=== PATIENT | female | born 2000 | race Caucasian/White ===

== ENCOUNTER 2018-11-26 08:00 | Outpatient (CLI) | payer OTHER ==
[2018-11-26 21:34] LABS: TRICHOMONAS VAGINALIS DNA NEGATIVE (NEGATIVE)
== END 2018-11-26 23:59 ==
LOC: LAB.R 08:00
PROVIDERS: ATTEND Nurse Practitioner Obstetrics & Gynecology
DX: Z36.85 Encounter for antenatal screening for Streptococcus B (principal); Z11.3 Encounter for screening for infections with a predominantly sexual mode of transmission
CPT/HCPCS: 87491; 87591; 87661; 87797

== ENCOUNTER 2018-12-06 12:07 | Observation (INO) | payer OTHER ==
[2018-12-06] MEDS ORDERED: ONDANSETRON 4 MG/2 ML VIAL IVP PRN (12:21)
[2018-12-06] MEDS ORDERED: SODIUM CHLORIDE FLUSH 0.9% 10 ML SYRINGE IVP PRN (12:21)
--- NOTE | 2018-12-06 13:40 | HISTORY & PHYSICAL EXAMINATION ---
Admit History - Visit Reason Visit Reason: Other - : 1 Parity: 0 Premature: 0 Ectopic: 0 : 0 Care: positive: [facility] Risk/History: positive: None Complications This : positive: None Smoking Status: Former smoker - Mother's Labs Mother's Blood Type: positive: O Mother's RH: positive: Positive GBS: positive: Group B Strep Positive Rubella Status: positive: Immune Meds/Allgy - Allergies Allergies/Adverse Reactions: Allergies Allergy/AdvReac Type Severity Reaction Status Date / Time No Known Drug Allergies Allergy Verified 12/06/18 13:15 Review of Systems - Constitutional Constitutional: denies: Fatigue, Fever, Chills - Eyes Eyes: denies: Blurred vision, Spots in vision, Dipolpia - Cardiovascular Cariovascular: denies: Irregular heart rate, Palpitations, Chest pain, Edema - Respiratory Respiratory: denies: SOB at rest - Gastrointestinal Gastrointestinal: denies: Constipation, Diarrhea, Nausea, Vomiting - Integumentary Integumentary: denies: Rash, Pruritis - Neurological Neurological: denies: Headache, Dizziness - Psychiatric Psychiatric: denies: Depression, Anxiety Physical - Abdominal Exam Vital Signs: Temp Pulse Resp BP Pulse Ox 36.6 C 86 16 139/80 H 99 12/06/18 12:39 12/06/18 12:39 12/06/18 12:39 12/06/18 12:39 12/06/18 12:39 Plan for Labor - Plan For Labor I expect patient to be DC'd or transferred within 96 hours.: Yes Plan for Labor: HPI: 18yo @ 39.3wks gestation by LMP c/w 11.3wk U/S presents to [facility] as directed from her routine office visit secondary to elevated blood pressure. She denies CASON, visual disturbances, RUQ or epigastric pain. She denies edema. SVE upon arriavl 3, posterior, vertex, membranes intact. She has been a patient of [facility] since 36wks gestation when she transferred her care from [facility]. Her has been healthy and uneventful with the exception of serum integrated which was positive for down syndrome. [place] and ultrasounds to follow were WNL. She also reports that she was being followed for concerns of growth and that her last growth ultrasound was WNL. Dating Criteria: LMP: 03/05/2019 Initial Ultrasound @ 11.3wks gestation - agrees Serial Exams - agree Medications: PNV; Tums, Zantac Allergies: Banana (itchy throat) Immunizations: Tdap 10/14/2018 PMHx:Generalized anxiety disorder; Obesity Surgical Hx: [place] teeth (2017) Social Hx: Former smoker, no ETOH or IVDA. 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 Family Hx: Asthma- Father; Bone cancer - grandfather; diabetes - father; HTN - father Ultrasounds: Initial ultrasound @ 11.3wks gestation is c/w LMP dating 07/22/2018 FAS WNL. Fundal placenta, no previa. 3VC. Size c/w dating labs: Blood type O positive, antibody neg PLT 345; Hgb 12.6; Hct 36.6 varicella immune rubella immune Hep B neg Hep C neg Hep A neg HIV non-reactive GC/CT neg RPR non-reactive Genetic testing: CF negative; Serum integrated screen POSITIVE; NIPT - neg, MFM consult and U/S WNL 1 hour GTT 117; Hgb 11.6 GBS POSITIVE Physical Exam: Normocephalic, atraumatic Heart RRR w/o M/G/R Lungs CTAB Abdomen gravid, soft, and nontender EFW 3400g SVE 04/26/-3, posterior, vertex, intact membranes Bilateral LE's no edema Mood is good Assessment: 18yo @ 39.3wks gestation by LMP c/w 11.3wk U/S Gestational hypertension GBS positive Plan: Pre-induction cervical ripening with misoprostol 50mcg BC q 4 hours Will initiate intrapartum antibiotic prophylaxis for GBS positive status with active labor or SROM/admission Patient will remain in observation until active labor, SROM, or epidural placement Encouraged ambulation and position changes. Encouraged ambien tonight to promote sleep unless in active labor Both patient and verbalized understanding and agree to above plan. They deny further questions or concerns at this time.
[2018-12-06] MEDS: miSOPROStoL 100 MCG TABLET BC SCH ×3 (13:49→22:05)
[2018-12-06 13:55] LABS: BASOPHILS % (AUTO) 0.2 %; EOSINOPHILS # (AUTO) 0.1 10^3/uL (0.0-0.7); EOSINOPHILS % (AUTO) 0.8 %; HGB - HEMOGLOBIN 12.8 g/dL (12.0-16.0); LYMPHOCYTES # (AUTO) 1.5 10^3/uL (1.5-3.5); MEAN CORPUSCULAR HEMOGLOBIN 29.4 pg (27.0-31.0); MEAN CORPUSCULAR HGB CONC 32.9 g/dL (32.0-36.0); MEAN CORPUSCULAR VOLUME 89.2 fL (81.0-99.0); MEAN PLATELET VOLUME 10.4 fL (7.9-10.8); MONOCYTES # (AUTO) 0.7 10^3/uL (0.0-1.0); MONOCYTES % (AUTO) 8.4 %; NEUTROPHILS % (AUTO) 71.9 %; PLT - PLATELET COUNT 267 10^3/uL (130-450); RED BLOOD COUNT 4.36 10^6/uL (4.20-5.40); RED CELL DISTRIBUTION WIDTH 14.3 % (12.0-15.0); WHITE BLOOD COUNT 8.3 x10^3/uL (4.8-10.8)
[2018-12-06 14:07] LABS: CREATININE 0.5 mg/dL (0.4-1.0); URIC ACID 4.9 mg/dL (2.6-7.2)
[2018-12-06 16:06] LABS: CREATININE,URINE 52.5 mg/dL; PROTEIN/CREATININE RATIO,URINE 0.2 (<=0.2)
[2018-12-06] MEDS ORDERED: SODIUM CHLORIDE FLUSH 0.9% 10 ML SYRINGE IVP SCH (17:00)
[2018-12-06] MEDS: ZOLPIDEM 5 MG TABLET PO PRN ×2 (22:04→23:54)
[2018-12-07] MEDS: miSOPROStoL 100 MCG TABLET BC SCH (02:04)
--- NOTE | 2018-12-07 09:33 | PROVIDER PROGRESS NOTE ---
Subjective - Subjective Subjective: S: Pt did not sleep well at all last night despite taking 10mg ambien. She states she slept for maybe 30 minutes total last night. She is feeling exhausted and irritable. She is hoping to go for a walk when her returns from letting out their dog. She denies CASON, visual disturbances, RUQ or epigastric pain. She reports her contractions increase in intensity when she is up moving around, but when she is sitting still they are more tolerable and crampy. She desires to discuss the option of going home and coming back in 2 days for further cervical ripening as her BPs have been stable throughout the night, pending normal repeat PIH labs. O: BPs consistently 130s/80s throughout the night. FHR baseline 130s, moderate variability, + accels, no decels Contractions irregular and inconsistent at this time with soft resting tone. A: 18yo @ 39.4wks gestation by LMP c/w 11.3wk U/S Gestational HTN GBS positive Pre-induction cervical ripening with misoprostol 50mcg BC q 4 hours s/p 4 total doses. Last dose administered at 0230. P: Continuous monitoring 4 hours after misoprostol administered. Allow patient to rest at this time. Repeat PIH labs at 1200. Counseled pt regarding normal BPs throughout the night and pending normal labs discussed option of going home to return in 48 hours for continued cervical ripening. Pt desires to discuss with her upon his return from checking on their pets and decide prior to next administration of misoprostol. Pt verbalized understanding and agrees to above plan. She denies further questions or concerns at this time. Objective - Vital Signs/Intake & Output Intake & Output: Intake & Output 12/04/18 12/05/18 12/06/18 12/07/18 23:59 23:59 23:59 23:59 Intake Total 250 250 Balance 250 250 - Lab Results Fish Bones: 12/06/18 13:43 12/06/18 13:43 Other Labs: Lab Results x24hrs 12/06/18 12/06/18 12/06/18 Range/Units 14:45 13:43 13:43 WBC (4.8-10.8) x10^3/uL RBC (4.20-5.40) 10^6/uL Hgb (12.0-16.0) g/dL Hct (37.0-47.0) % MCV (81.0-99.0) fL MCH (27.0-31.0) pg MCHC (32.0-36.0) g/dL RDW (12.0-15.0) % Plt Count (130-450) 10^3/uL MPV (7.9-10.8) fL Neut # (Auto) (1.5-6.6) 10^3/uL Lymph # (Auto) (1.5-3.5) 10^3/uL [place] # (Auto) (0.0-1.0) 10^3/uL Eos # (Auto) (0.0-0.7) 10^3/uL Baso # (Auto) (0.0-0.1) 10^3/uL Absolute Nucleated RBC x10^3/uL Nucleated RBC % /100WBC Creatinine 0.5 (0.4-1.0) mg/dL Estimated GFR (MDRD) 157 (>89) Uric Acid 4.9 (2.6-7.2) mg/dL AST 21 (10-42) IU/L Lactate Dehydrogenase 112 (91-225) IU/L Urine Creatinine 52.5 mg/dL Ur Total Protein Timed 9 mg/dL Protein/Creatinin Ratio 0.2 (<=0.2) 12/06/18 Range/Units 13:43 WBC 8.3 (4.8-10.8) x10^3/uL RBC 4.36 (4.20-5.40) 10^6/uL Hgb 12.8 (12.0-16.0) g/dL Hct 38.9 (37.0-47.0) % MCV 89.2 (81.0-99.0) fL MCH 29.4 (27.0-31.0) pg MCHC 32.9 (32.0-36.0) g/dL RDW 14.3 (12.0-15.0) % Plt Count 267 (130-450) 10^3/uL MPV 10.4 (7.9-10.8) fL Neut # (Auto) 6.0 (1.5-6.6) 10^3/uL Lymph # (Auto) 1.5 (1.5-3.5) 10^3/uL [place] # (Auto) 0.7 (0.0-1.0) 10^3/uL Eos # (Auto) 0.1 (0.0-0.7) 10^3/uL Baso # (Auto) 0.0 (0.0-0.1) 10^3/uL Absolute Nucleated RBC 0.00 x10^3/uL Nucleated RBC % 0.0 /100WBC Creatinine (0.4-1.0) mg/dL Estimated GFR (MDRD) (>89) Uric Acid (2.6-7.2) mg/dL AST (10-42) IU/L Lactate Dehydrogenase (91-225) IU/L Urine Creatinine mg/dL Ur Total Protein Timed mg/dL Protein/Creatinin Ratio (<=0.2)
--- NOTE | 2018-12-07 10:21 | PROVIDER PROGRESS NOTE ---
Subjective - Subjective Subjective: Patient has spoken with her and they both strongly desire to go home. BPs have remained stable at 130s/80s. PIH precautions extensively reviewed. Will repeat labs at 1100 and if WNL will release patient home to return 12/09/2018 for continued cervical ripening in anticipation for induction of labor secondary to gestational HTN. 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 Objective - Vital Signs/Intake & Output Intake & Output: Intake & Output 12/04/18 12/05/18 12/06/18 12/07/18 23:59 23:59 23:59 23:59 Intake Total 250 250 Balance 250 250 - Lab Results Fish Bones: 12/06/18 13:43 12/06/18 13:43 Other Labs: Lab Results x24hrs 12/06/18 12/06/18 12/06/18 Range/Units 14:45 13:43 13:43 WBC (4.8-10.8) x10^3/uL RBC (4.20-5.40) 10^6/uL Hgb (12.0-16.0) g/dL Hct (37.0-47.0) % MCV (81.0-99.0) fL MCH (27.0-31.0) pg MCHC (32.0-36.0) g/dL RDW (12.0-15.0) % Plt Count (130-450) 10^3/uL MPV (7.9-10.8) fL Neut # (Auto) (1.5-6.6) 10^3/uL Lymph # (Auto) (1.5-3.5) 10^3/uL [place] # (Auto) (0.0-1.0) 10^3/uL Eos # (Auto) (0.0-0.7) 10^3/uL Baso # (Auto) (0.0-0.1) 10^3/uL Absolute Nucleated RBC x10^3/uL Nucleated RBC % /100WBC Creatinine 0.5 (0.4-1.0) mg/dL Estimated GFR (MDRD) 157 (>89) Uric Acid 4.9 (2.6-7.2) mg/dL AST 21 (10-42) IU/L Lactate Dehydrogenase 112 (91-225) IU/L Urine Creatinine 52.5 mg/dL Ur Total Protein Timed 9 mg/dL Protein/Creatinin Ratio 0.2 (<=0.2) 12/06/18 Range/Units 13:43 WBC 8.3 (4.8-10.8) x10^3/uL RBC 4.36 (4.20-5.40) 10^6/uL Hgb 12.8 (12.0-16.0) g/dL Hct 38.9 (37.0-47.0) % MCV 89.2 (81.0-99.0) fL MCH 29.4 (27.0-31.0) pg MCHC 32.9 (32.0-36.0) g/dL RDW 14.3 (12.0-15.0) % Plt Count 267 (130-450) 10^3/uL MPV 10.4 (7.9-10.8) fL Neut # (Auto) 6.0 (1.5-6.6) 10^3/uL Lymph # (Auto) 1.5 (1.5-3.5) 10^3/uL [place] # (Auto) 0.7 (0.0-1.0) 10^3/uL Eos # (Auto) 0.1 (0.0-0.7) 10^3/uL Baso # (Auto) 0.0 (0.0-0.1) 10^3/uL Absolute Nucleated RBC 0.00 x10^3/uL Nucleated RBC % 0.0 /100WBC Creatinine (0.4-1.0) mg/dL Estimated GFR (MDRD) (>89) Uric Acid (2.6-7.2) mg/dL AST (10-42) IU/L Lactate Dehydrogenase (91-225) IU/L Urine Creatinine mg/dL Ur Total Protein Timed mg/dL Protein/Creatinin Ratio (<=0.2)
[2018-12-07 11:25] LABS: BASOPHILS % (AUTO) 0.2 %; EOSINOPHILS % (AUTO) 0.3 %; HGB - HEMOGLOBIN 13.3 g/dL (12.0-16.0); LYMPHOCYTES # (AUTO) 1.4 10^3/uL (1.5-3.5); MEAN CORPUSCULAR HEMOGLOBIN 29.6 pg (27.0-31.0); MEAN CORPUSCULAR HGB CONC 33.5 g/dL (32.0-36.0); MEAN CORPUSCULAR VOLUME 88.2 fL (81.0-99.0); MEAN PLATELET VOLUME 10.1 fL (7.9-10.8); MONOCYTES # (AUTO) 0.8 10^3/uL (0.0-1.0); MONOCYTES % (AUTO) 6.8 %; NEUTROPHILS # (AUTO) 9.2 10^3/uL (1.5-6.6); PLT - PLATELET COUNT 263 10^3/uL (130-450); RED CELL DISTRIBUTION WIDTH 14.3 % (12.0-15.0); WHITE BLOOD COUNT 11.4 x10^3/uL (4.8-10.8)
[2018-12-07 11:35] LABS: CREATININE,URINE 142.6 mg/dL; PROTEIN/CREATININE RATIO,URINE 0.2 (<=0.2)
[2018-12-07 11:39] LABS: URIC ACID 5.5 mg/dL (2.6-7.2)
--- NOTE | 2018-12-07 12:09 | PROVIDER PROGRESS NOTE ---
Subjective - Subjective Subjective: FINAL PROGRESS NOTE: [facility] labs WNL. BP 130/80. Pt denies CASON, visual disturbances RUQ or epigastric pain. Patient released home with precautions. Will return 12/09/2018 @ 0800. Patient verbalized understanding and agrees to above plan. She denies further questions or concerns at this time. Objective - Vital Signs/Intake & Output Intake & Output: Intake & Output 12/04/18 12/05/18 12/06/18 12/07/18 23:59 23:59 23:59 23:59 Intake Total 250 250 Balance 250 250 - Lab Results Fish Bones: 12/07/18 11:20 12/06/18 13:43 Other Labs: Lab Results x24hrs 12/07/18 12/07/18 12/07/18 Range/Units 11:20 11:20 11:20 WBC 11.4 H (4.8-10.8) x10^3/uL RBC 4.50 (4.20-5.40) 10^6/uL Hgb 13.3 (12.0-16.0) g/dL Hct 39.7 (37.0-47.0) % MCV 88.2 (81.0-99.0) fL MCH 29.6 (27.0-31.0) pg MCHC 33.5 (32.0-36.0) g/dL RDW 14.3 (12.0-15.0) % Plt Count 263 (130-450) 10^3/uL MPV 10.1 (7.9-10.8) fL Neut # (Auto) 9.2 H (1.5-6.6) 10^3/uL Lymph # (Auto) 1.4 L (1.5-3.5) 10^3/uL [place] # (Auto) 0.8 (0.0-1.0) 10^3/uL Eos # (Auto) 0.0 (0.0-0.7) 10^3/uL Baso # (Auto) 0.0 (0.0-0.1) 10^3/uL Absolute Nucleated RBC 0.00 x10^3/uL Nucleated RBC % 0.0 /100WBC Creatinine (0.4-1.0) mg/dL Estimated GFR (MDRD) (>89) Uric Acid 5.5 (2.6-7.2) mg/dL AST 24 (10-42) IU/L Lactate Dehydrogenase 122 (91-225) IU/L Urine Creatinine mg/dL Ur Total Protein Timed mg/dL Protein/Creatinin Ratio (<=0.2) 12/07/18 12/07/18 12/06/18 Range/Units 11:00 11:00 14:45 WBC (4.8-10.8) x10^3/uL RBC (4.20-5.40) 10^6/uL Hgb (12.0-16.0) g/dL Hct (37.0-47.0) % MCV (81.0-99.0) fL MCH (27.0-31.0) pg MCHC (32.0-36.0) g/dL RDW (12.0-15.0) % Plt Count (130-450) 10^3/uL MPV (7.9-10.8) fL Neut # (Auto) (1.5-6.6) 10^3/uL Lymph # (Auto) (1.5-3.5) 10^3/uL [place] # (Auto) (0.0-1.0) 10^3/uL Eos # (Auto) (0.0-0.7) 10^3/uL Baso # (Auto) (0.0-0.1) 10^3/uL Absolute Nucleated RBC x10^3/uL Nucleated RBC % /100WBC Creatinine (0.4-1.0) mg/dL Estimated GFR (MDRD) (>89) Uric Acid (2.6-7.2) mg/dL AST (10-42) IU/L Lactate Dehydrogenase (91-225) IU/L Urine Creatinine 142.6 142.3 52.5 mg/dL Ur Total Protein Timed 26 9 mg/dL Protein/Creatinin Ratio 0.2 0.2 (<=0.2) 12/06/18 12/06/18 12/06/18 Range/Units 13:43 13:43 13:43 WBC 8.3 (4.8-10.8) x10^3/uL RBC 4.36 (4.20-5.40) 10^6/uL Hgb 12.8 (12.0-16.0) g/dL Hct 38.9 (37.0-47.0) % MCV 89.2 (81.0-99.0) fL MCH 29.4 (27.0-31.0) pg MCHC 32.9 (32.0-36.0) g/dL RDW 14.3 (12.0-15.0) % Plt Count 267 (130-450) 10^3/uL MPV 10.4 (7.9-10.8) fL Neut # (Auto) 6.0 (1.5-6.6) 10^3/uL Lymph # (Auto) 1.5 (1.5-3.5) 10^3/uL [place] # (Auto) 0.7 (0.0-1.0) 10^3/uL Eos # (Auto) 0.1 (0.0-0.7) 10^3/uL Baso # (Auto) 0.0 (0.0-0.1) 10^3/uL Absolute Nucleated RBC 0.00 x10^3/uL Nucleated RBC % 0.0 /100WBC Creatinine 0.5 (0.4-1.0) mg/dL Estimated GFR (MDRD) 157 (>89) Uric Acid 4.9 (2.6-7.2) mg/dL AST 21 (10-42) IU/L Lactate Dehydrogenase 112 (91-225) IU/L Urine Creatinine mg/dL Ur Total Protein Timed mg/dL Protein/Creatinin Ratio (<=0.2)
[2018-12-07 12:34] VITALS: BP 130/79
== END 2018-12-07 12:15 | disposition home or self-care (01) ==
LOC: WFO 12:07 → FBP 12:21
PROVIDERS: ADMIT Nurse Practitioner Obstetrics & Gynecology; ATTEND Nurse Practitioner Obstetrics & Gynecology
DX: O61.0 Failed medical induction of labor (principal); O13.3 Gestational [pregnancy-induced] hypertension without significant proteinuria, third trimester; O99.820 Streptococcus B carrier state complicating pregnancy; Z3A.39 39 weeks gestation of pregnancy; Z87.891 Personal history of nicotine dependence
CPT/HCPCS: 36415; 82565; 82570; 83615; 84156; 84450; 84550; 85025; 96374; A9270; G0378; G0379

== ENCOUNTER 2018-12-09 07:41 | Inpatient (IN) | payer OTHER ==
[2018-12-09] MEDS ORDERED: SODIUM CHLORIDE FLUSH 0.9% 10 ML SYRINGE IVP PRN (08:10)
[2018-12-09 08:47] LABS: BASOPHILS % (AUTO) 0.4 %; EOSINOPHILS # (AUTO) 0.1 10^3/uL (0.0-0.7); EOSINOPHILS % (AUTO) 1.1 %; HGB - HEMOGLOBIN 12.6 g/dL (12.0-16.0); LYMPHOCYTES # (AUTO) 1.4 10^3/uL (1.5-3.5); MEAN CORPUSCULAR HEMOGLOBIN 29.7 pg (27.0-31.0); MEAN CORPUSCULAR VOLUME 90.1 fL (81.0-99.0); MEAN PLATELET VOLUME 10.4 fL (7.9-10.8); MONOCYTES # (AUTO) 0.8 10^3/uL (0.0-1.0); MONOCYTES % (AUTO) 9.4 %; NEUTROPHILS # (AUTO) 5.7 10^3/uL (1.5-6.6); NEUTROPHILS % (AUTO) 71.6 %; PLT - PLATELET COUNT 219 10^3/uL (130-450); RED BLOOD COUNT 4.24 10^6/uL (4.20-5.40); RED CELL DISTRIBUTION WIDTH 14.1 % (12.0-15.0)
[2018-12-09] MEDS: SODIUM CHLORIDE FLUSH 0.9% 10 ML SYRINGE IVP SCH (08:49)
[2018-12-09 08:53] LABS: URIC ACID 5.8 mg/dL (2.6-7.2)
[2018-12-09 09:51] LABS: CREATININE,URINE 114.9 mg/dL; PROTEIN/CREATININE RATIO,URINE 0.1 (<=0.2)
[2018-12-09] MEDS: miSOPROStol 100 MCG TABLET BC SCH ×2 (10:22→14:33)
[2018-12-09] MEDS: fentaNYL 100 MCG/2 ML VIAL IVP PRN (18:52)
[2018-12-09] MEDS ORDERED: AMPICILLIN 2 GM in SODIUM CHLORIDE 0.9% MINIBAG 100 ML IV ONE (19:10)
[2018-12-09] MEDS: LACTATED RINGERS 1,000 ML IV SCH (19:35)
--- NOTE | 2018-12-09 19:36 | HISTORY & PHYSICAL EXAMINATION ---
Admit History - Visit Reason Visit Reason: Other (Induction of labor for gestational hypertension) - Smoking Status: Never smoker - Other Maternal History Other Maternal History: HPI: 18yo @ 39.6wks gestation by LMP c/w 11.3wk U/S with BRITTANY 12/10/18 presents to [facility] for induction of labor for gestational hypertension. On 12/06/18, Olga was directed from her routine office visit to Labor and Delivery secondary to elevated blood pressures. She underwent cervical ripening with miso x6 with nminimal change in [place] score from initial exam of 04/26/-3, posterior, vertex, membranes intact. Her blood pressures were in normal range, she was withiout symptoms, and PIH labs were normal. She was discharged to home for IOL on 12/09/18. She presents today for IOL. No change in health hx since time of prior exam. Denies CASON/vision change/RUQ pain. Endorses movement. Denies loss of fluid/vaginal bleeding/contractions. She has been a patient of [facility] since 36wks gestation when she transferred her care from [facility]. Her has been healthy and uneventful with the exception of serum integrated which was positive for down syndrome. [place] and ultrasounds to follow were WNL. She also reports that she was being followed for concerns of growth and that her last growth ultrasound was WNL. Dating Criteria: LMP: 03/05/2019 Initial Ultrasound @ 11.3wks gestation - agrees Serial Exams - agree Medications: PNV; Tums, Zantac Allergies: Banana (itchy throat) Immunizations: Tdap 10/14/2018 PMHx:Generalized anxiety disorder; Obesity Surgical Hx: [place] teeth (2017) Social Hx: Former smoker, no ETOH or IVDA. 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 She currently works at [employer] [place] Family Hx: Asthma- Father; Bone cancer - grandfather; diabetes - father; HTN - father Ultrasounds: Initial ultrasound @ 11.3wks gestation is c/w LMP dating 07/22/2018 FAS WNL. Fundal placenta, no previa. 3VC. Size c/w dating labs: Blood type O positive, antibody neg PLT 345; Hgb 12.6; Hct 36.6 varicella immune rubella immune Hep B neg Hep C neg Hep A neg HIV non-reactive GC/CT neg RPR non-reactive Genetic testing: CF negative; Serum integrated screen POSITIVE; NIPT - neg, MFM consult and U/S WNL 1 hour GTT 117; Hgb 11.6 GBS POSITIVE Physical Exam: Normocephalic, atraumatic Heart RRR w/o M/G/R Lungs CTAB Abdomen gravid, soft, and nontender EFW 3400g SVE 1/50/-3, posterior, vertex, intact membranes Bilateral LE's no edema Mood is good Meds/Allgy - Allergies Allergies/Adverse Reactions: Allergies Allergy/AdvReac Type Severity Reaction Status Date / Time No Known Drug Allergies Allergy Verified 12/06/18 13:15 Review of Systems - Other Findings Other Findings: As per HPI, otherwise remaining systems are negative. Physical - Abdominal Exam Contraction Intensity: positive: Irritability, Other - Monitoring Strip Review: positive: Category I - Presentation Presentation: positive: Vertex - Vaginal Exam Membranes: positive: Membranes intact Dilation (in cm): 1 Effacement (%): 50 Station: positive: -3 Cervical Position: positive: Posterior Plan for Labor - Plan For Labor Plan for Labor: 18-year-old G1, P0 at 39 weeks 6 days estimated gestational age here for induction of labor for gestational hypertension Induction of labor:Unfavorable Siu score. -Will start cervical ripening with misoprostol 50 mcg p.o. every 4 hours to a maximum of 6 doses. -Discussed Noriega balloon. Highly recommend given poor response to misoprostil in prior admission. Will administer 1-2 doses of misoprostol and Then Place, Noriega program. Will start ampicillin for GBS prophylaxis when Noriega balloon is placed -Pitocin once favorable -AROM when appropriate Gestational hypertension: -Mild range pressures at current -PIH labs within normal limits -No symptoms at current -We will treat severe range blood pressures (SBP greater than 160, DBP greater than 110) with IV labetalol/hydralazine as per ACOG guidelines. -We will start magnesium for severe range pressures/symptoms/PIH lab abnormaliti es -Continue to monitor well-being: -Vertex confirmed by bedside ultrasound -Category 1 tracing -GBS positive Will start ampicillin per GBS prophylaxis protocol with placement of Noriega bulb/rupture of membranes/active labor -Denies history of HSV -Continuous external monitoring Pain management: -Desires but is not 100% committed to unmedicated delivery. -Discussed options for management. These include: Fentanyl 50 mcg IV every 2 hours in early labor. Max dose 200 mcg and not to be given after 7 cm dilation Nitrous oxide at any point in the labor process Epidural as desired Rh+ /Rubella immune Anticipate
--- NOTE | 2018-12-09 19:49 | PROVIDER PROGRESS NOTE ---
Subjective - Prog Note Date Prog Note Date: 12/09/18 Prog Note Time: 19:00 - Subjective Subjective: Patient has had 2 doses of misoprostol. She is [place] every 3 to 5 minutes. They are mild to moderate. Endorses movement. No loss of fluid or vaginal bleeding. Blood pressures have been in mild high normal range. No headache/vision changes/right upper quadrant pain. Objective - Objective General Appearance: positive: No acute distress Neck: positive: Nml inspection Respiratory: positive: No respiratory distress Rectal: positive: Non-tender Extremities: positive: Non-tender, No pedal edema Neurologic/Psychiatric: positive: Oriented x3 - Lab Results Fish Bones: 12/09/18 08:29 Other Labs: Lab Results x24hrs 12/09/18 12/09/18 12/09/18 Range/Units 08:29 08:29 08:29 WBC 8.0 (4.8-10.8) x10^3/uL RBC 4.24 (4.20-5.40) 10^6/uL Hgb 12.6 (12.0-16.0) g/dL Hct 38.2 (37.0-47.0) % MCV 90.1 (81.0-99.0) fL MCH 29.7 (27.0-31.0) pg MCHC 33.0 (32.0-36.0) g/dL RDW 14.1 (12.0-15.0) % Plt Count 219 (130-450) 10^3/uL MPV 10.4 (7.9-10.8) fL Neut # (Auto) 5.7 (1.5-6.6) 10^3/uL Lymph # (Auto) 1.4 L (1.5-3.5) 10^3/uL [place] # (Auto) 0.8 (0.0-1.0) 10^3/uL Eos # (Auto) 0.1 (0.0-0.7) 10^3/uL Baso # (Auto) 0.0 (0.0-0.1) 10^3/uL Absolute Nucleated RBC 0.00 x10^3/uL Nucleated RBC % 0.0 /100WBC Uric Acid 5.8 (2.6-7.2) mg/dL AST 17 (10-42) IU/L Lactate Dehydrogenase 97 (91-225) IU/L Urine Creatinine mg/dL Ur Total Protein Timed mg/dL Protein/Creatinin Ratio (<=0.2) 12/09/18 Range/Units 08:00 WBC (4.8-10.8) x10^3/uL RBC (4.20-5.40) 10^6/uL Hgb (12.0-16.0) g/dL Hct (37.0-47.0) % MCV (81.0-99.0) fL MCH (27.0-31.0) pg MCHC (32.0-36.0) g/dL RDW (12.0-15.0) % Plt Count (130-450) 10^3/uL MPV (7.9-10.8) fL Neut # (Auto) (1.5-6.6) 10^3/uL Lymph # (Auto) (1.5-3.5) 10^3/uL [place] # (Auto) (0.0-1.0) 10^3/uL Eos # (Auto) (0.0-0.7) 10^3/uL Baso # (Auto) (0.0-0.1) 10^3/uL Absolute Nucleated RBC x10^3/uL Nucleated RBC % /100WBC Uric Acid (2.6-7.2) mg/dL AST (10-42) IU/L Lactate Dehydrogenase (91-225) IU/L Urine Creatinine 114.9 mg/dL Ur Total Protein Timed 17 mg/dL Protein/Creatinin Ratio 0.1 (<=0.2) - Other Results/Comments Other Results/Comments: SVE: 1/50/-3/posterior/soft medium Membranes intact Category 1 tracing [place]: Every 3 to 5 minutes, mild Patient received 50 mcg of fentanyl IV. Noriega balloon was placed. Uterine balloon was infiltrated with 60 cc of sterile normal saline. Vaginal balloon was infiltrated with 40 cc of sterile normal saline. Assessment/Plan - Problem List (1) Encounter for induction of labor Impression: Induction of labor: -Has received 2 doses of misoprostol 50 mcg p.o. with minimal change in Siu score -[place] Noriega balloon placed with 60/40 cc NS infiltrated -GBS positive; starting ampicillin for GBS prophylaxis given placement of Noriega balloon. -We will monitor for 1 to 2 hours. Consider starting Pitocin at low dose after 1 to 2 hours depending on level of patient discomfort/uterine activity FWB: -Category 1 tracing -Starting GBS prophylaxis G HTN: -Blood pressure is within mild range or high normal range -No symptoms -PIH labs within normal limits -Continue to monitor
[2018-12-09] MEDS: OXYTOCIN/DEXTROSE 5 % 30 UNIT/500 ML BAG IV SCH (22:18)
[2018-12-09] MEDS: AMPICILLIN 1 GM in SODIUM CHLORIDE 0.9% MINIBAG 100 ML IV SCH (23:31)
[2018-12-10] MEDS: fentaNYL 100 MCG/2 ML VIAL IVP PRN ×2 (00:14→02:12)
[2018-12-10] MEDS: AMPICILLIN 1 GM in SODIUM CHLORIDE 0.9% MINIBAG 100 ML IV SCH ×4 (03:36→15:33)
[2018-12-10] MEDS ORDERED: ONDANSETRON 4 MG/2 ML VIAL IVP PRN ×2 (05:05→10:04)
[2018-12-10] MEDS: miSOPROStol 100 MCG TABLET BC SCH ×6 (05:18→18:21)
[2018-12-10] MEDS: SODIUM CHLORIDE FLUSH 0.9% 10 ML SYRINGE IVP SCH ×4 (05:18→18:20)
[2018-12-10] MEDS: LACTATED RINGERS 1,000 ML IV SCH ×4 (05:33→18:30)
[2018-12-10] MEDS ORDERED: METOCLOPRAMIDE 10 MG/2 ML VIAL IVP PRN (08:18)
[2018-12-10] MEDS ORDERED: METOCLOPRAMIDE 10 MG TABLET PO PRN (08:19)
--- NOTE | 2018-12-10 10:02 | ANESTHESIA ---
Pre-Anesthesia VS, & Labs - Diagnosis Active Labor - Procedure Vaginal Delivery Height 5 ft 4 in Weight (kg) 94.347 kg - NPO Other (Clear liquids) - Is Patient ?: Yes - Lab Results Current Lab Results: Laboratory Tests 12/09/18 08:29: Uric Acid 5.8, AST 17 12/09/18 08:29: Lactate Dehydrogenase 97 12/09/18 08:29: WBC 8.0, RBC 4.24, Hgb 12.6, Hct 38.2, MCV 90.1, MCH 29.7, MCHC 33.0, RDW 14.1, Plt Count 219, MPV 10.4, Neut # (Auto) 5.7, Lymph # (Auto) 1.4 L , [place] # (Auto) 0.8, Eos # (Auto) 0.1, Baso # (Auto) 0.0, Absolute Nucleated RBC 0.00, Nucleated RBC % 0.0 Fish Bones: 12/09/18 08:29 Home Medications and Allergies Active Medications Fentanyl (Fentanyl) 50 mcg IVP Q2HR PRN PRN Reason: PAIN Last Admin: 12/10/18 02:12 Dose: 50 mcg Lactated Ringer's (Lr) 1,000 mls @ 150 mls/hr IV .[id number] [facility] Last Admin: 12/10/18 08:35 Dose: Not Given Ampicillin Sodium 1 gm/ Sodium (Chloride) 100 mls @ 200 mls/hr IV Q4H [facility] Last Infusion: 12/10/18 08:34 Dose: Infused OXYTOCIN/DEXTROSE 5 % (Pitocin/Dextrose 5%) 30 unit in 500 mls @ 1 mls/hr IV TITR [facility]; Protocol Last Admin: 12/09/18 22:18 Dose: 1 milliunit/min, 1 mls/hr Metoclopramide HCl (Reglan Inj) 5 - 10 mg IVP Q6HR PRN PRN Reason: Nausea / Vomiting Metoclopramide HCl (Reglan) 10 mg PO ACHS PRN PRN Reason: Nausea / Vomiting Misoprostol (Cytotec) 50 mcg BC Q4H [facility] Last Admin: 12/10/18 08:34 Dose: Not Given Ondansetron HCl (Zofran Inj) 4 - 8 mg IVP Q8HR PRN PRN Reason: Nausea / Vomiting Sodium Chloride (Normal Saline Flush 0.9%) 10 ml IVP PRN PRN PRN Reason: NEEDED PER PROVIDER ORDERS Last Admin: 12/09/18 20:54 Dose: 10 ml Sodium Chloride (Normal Saline Flush 0.9%) 10 ml IVP 0100,0900,1700 CINDI Last Admin: 12/10/18 05:19 Dose: Not Given PNV Allergies/Adverse Reactions: Allergies Allergy/AdvReac Type Severity Reaction Status Date / Time No Known Drug Allergies Allergy Verified 12/06/18 13:15 Anes History & Medical History - Anesthetic History Family history of Anesthesia Complications: Denies Family history of Malignant Hyperthermia: Denies - Medical History Cardiovascular: reports: None Pulmonary: reports: None Gastrointestinal: reports: GERD (during ) Urinary: reports: None Neuro: reports: None Musculoskeletal: reports: None Endocrine/Autoimmune: reports: None Blood Disorders: reports: None Smoking Status: Never smoker Psychosocial: reports: No issues indicated - Obstetrical History : 1 Parity: 0 Events: positive: Other (Gestational hypertension) Exam General: Alert, Oriented x3, Cooperative, No acute distress Dental: WNL Mouth Openin Fingerbreadth Neck Mobility: Normal Mallampati classification: III Thyromental Distance: greater than 6 cm Plan Anesthesia Type: Epidural (DPE) Consent for Procedure(s) Verified and Reviewed: Yes Code Status: Attempt Resuscitation ASA classification: 2-Mild systemic disease Is this case an emergency?: No
[2018-12-10] MEDS ORDERED: ePHEDrine 50 MG/ML VIAL IVP PRN (10:04)
[2018-12-10] MEDS ORDERED: fent/BUPIV 2 MCG/0.125% 250 ML EP PRN (10:04)
[2018-12-10] MEDS ORDERED: NALOXONE 0.4 MG/ML VIAL IVP PRN (10:04)
[2018-12-10] MEDS ORDERED: NALBUPHINE 10 MG/ML AMP IVP PRN (10:04)
[2018-12-10] MEDS: ONDANSETRON 4 MG/2 ML VIAL IVP PRN ×2 (10:05→17:23)
[2018-12-10] MEDS ORDERED: fent/BUPIV 2 MCG/0.125% 250 ML EP ONE (10:08)
--- NOTE | 2018-12-10 12:01 | PROVIDER PROGRESS NOTE ---
Labor Progress Note - Uterine Monitoring Uterine Monitoring Mode: positive: External toco Contraction Frequency (min/apart): 3 Contraction Intensity: positive: Mild to moderate Uterine Resting Tone: positive: Soft - Monitoring Monitor Mode: positive: External ultrasound Heart Rate Baseline: 130 Heart Rate Variability: positive: Moderate (6-25 bmp) Accelerations: positive: Present, 15x15 Decelerations: positive: None Strip Review: positive: Category I - Vaginal Exam Dilation (in cm): 4 Effacement (%): 60 Station: -1 Cervical Position: Posterior - Labor Progress Note Labor Progress Note/Additional Text: AROM clear fluid.
--- NOTE | 2018-12-10 17:19 | PROVIDER PROGRESS NOTE ---
Labor Progress Note - Uterine Monitoring Uterine Monitoring Mode: positive: IUPC
--- NOTE | 2018-12-10 17:23 | PROVIDER PROGRESS NOTE ---
Labor Progress Note - Uterine Monitoring Uterine Monitoring Mode: positive: IUPC (strong) Contraction Intensity: positive: Strong Uterine Resting Tone: positive: Soft - Monitoring Monitor Mode: positive: External ultrasound Heart Rate Baseline: 130's Heart Rate Variability: positive: Minimal (0-5 bpm) Accelerations: positive: Present, 15x15 Decelerations: positive: None Strip Review: positive: Category I - Vaginal Exam Dilation (in cm): 7-8 Effacement (%): 80% Station: 2 Cervical Position: Anterior - Labor Progress Note Labor Progress Note/Additional Text: Progressing well. pain control problems. anaesthesia here to epidural management
[2018-12-10] MEDS ORDERED: fentaNYL 100 MCG/2 ML VIAL ONE (17:30)
[2018-12-10] MEDS ORDERED: SODIUM CHLORIDE 0.9% 10 ML ONE (17:31)
[2018-12-10] MEDS ORDERED: LIDOCAINE-MPF 1% 30 ML VIAL ONE (19:00)
[2018-12-10] MEDS ORDERED: miSOPROStol 200 MCG TABLET ONE (19:00)
[2018-12-10] MEDS ORDERED: LIDOCAINE 1% 50 ML MDV TD ONE (19:10)
[2018-12-10] MEDS ORDERED: OXYTOCIN/DEXTROSE 5 % 30 UNIT/500 ML BAG IV PRN (19:10)
[2018-12-10] MEDS ORDERED: WITCH HAZEL/GLYCERIN 1 PAD TOP PRN (19:31)
[2018-12-10] MEDS ORDERED: diphenhydrAMINE 25 MG CAPSULE PO PRN (19:31)
[2018-12-10] MEDS ORDERED: oxyCODONE 5 MG TABLET PO PRN (19:31)
[2018-12-10] MEDS ORDERED: HYDROCORTISONE 1% CREAM 28 GM TUBE PR PRN (19:31)
[2018-12-10] MEDS: OXYTOCIN/DEXTROSE 5 % 30 UNIT/500 ML BAG IV SCH ×2 (19:39→19:41)
--- NOTE | 2018-12-10 19:40 | DELIVERY NOTE ---
Delivery Note - Labor Labor: positive: Induced by oxytocin - Infant Delivery Method Delivery Method: positive: Spontaneous vaginal delivery - Cervical Ripening Method Cervical Ripening Method: positive: Balloon device, Misoprostil (times 6) - Presentation Presentation: positive: Vertex, IVETTE - left occiput anterior - Nuchal Cord Nuchal Cord: positive: Present (times one) - Anesthetic Anesthetic Type: Anesthetic: positive: Lidocaine - 1% plain Volume: positive: Other (20) - Episiotomy Type Episiotomy Type: positive: Midline (second degree with out extension) - Suture Suture Type: positive: Vicryl Suture Size: positive: 3-0 - Delivery Outcome Delivery Outcome: positive: Livebirth (femail Apgars 9/9) - : positive: Placed in direct skin contact with mother, Bulb syringe, Stimulated, Warmed [place] sex: positive: Female - Cord Cord: positive: 3 vessels - Placenta Placenta: positive: Intact, Spontaneous - Estimated Blood Loss Estimated Blood Loss (in cc): 300 - Post Delivery Events Post Delivery Events: positive: No post delivery events - Delivery Comments (Free Text/Narrative) Delivery Comments (Free Text/Narrative): because of gestational HTN pt presented for cervical ripening and induction of labor. cervix was not responsive and had multiple doses of cytotec. She was sent home and represented. Cytotec used and a [employer] catheter placed. Catheter fell out at 3 cm. pitocin started and then a epidural placed. she was AROM at 1154. She rested as pitocin was increased. she reached complete at 1837 and following a 27 min second stage she delivered at 1904 a live female. because of bradycardia in the 60's a MLE was cut which expedited Delivery. Baby was placed on mothers abdomen and stimulated. Apgars of 9/9. Placenta followed complete at 1910. Repaired with 3-0 vicril. Total EBL 300 ml
--- NOTE | 2018-12-10 19:53 | ANESTHESIA PROCEDURE NOTE ---
Anesthesia Epidural Template - Other Comments Other Comments: Called for inadequate control of labor pain. Epidural was bolused with 10ml PF NS with 100 mcg fentanyl. Epidural settings were changed to 12ml every 45mins PIEB. Full evaluation pending.
[2018-12-10] MEDS ORDERED: LACTATED RINGERS 1,000 ML IV SCH (20:00)
[2018-12-10] MEDS: DOCUSATE SODIUM 100 MG CAPSULE PO SCH (21:05)
[2018-12-10] MEDS: IBUPROFEN 800 MG TABLET PO SCH (21:05)
[2018-12-10] MEDS: ACETAMINOPHEN 500 MG TABLET PO SCH (21:05)
[2018-12-10] MEDS ORDERED: SIMETHICONE CHEW 80 MG TABLET PO SCH (22:00)
[2018-12-11] MEDS: IBUPROFEN 800 MG TABLET PO SCH ×4 (03:39→23:08)
[2018-12-11] MEDS: ACETAMINOPHEN 500 MG TABLET PO SCH ×3 (05:02→20:59)
[2018-12-11 05:45] LABS: BASOPHILS % (AUTO) 0.3 %; EOSINOPHILS # (AUTO) 0.1 10^3/uL (0.0-0.7); EOSINOPHILS % (AUTO) 0.8 %; HGB - HEMOGLOBIN 10.4 g/dL (12.0-16.0); LYMPHOCYTES # (AUTO) 1.5 10^3/uL (1.5-3.5); LYMPHOCYTES % (AUTO) 13.5 %; MEAN CORPUSCULAR HEMOGLOBIN 30.2 pg (27.0-31.0); MEAN CORPUSCULAR HGB CONC 33.7 g/dL (32.0-36.0); MEAN CORPUSCULAR VOLUME 89.8 fL (81.0-99.0); MEAN PLATELET VOLUME 10.4 fL (7.9-10.8); MONOCYTES # (AUTO) 1.1 10^3/uL (0.0-1.0); MONOCYTES % (AUTO) 10.1 %; NEUTROPHILS # (AUTO) 8.3 10^3/uL (1.5-6.6); NEUTROPHILS % (AUTO) 74.8 %; PLT - PLATELET COUNT 194 10^3/uL (130-450); RED BLOOD COUNT 3.44 10^6/uL (4.20-5.40); WHITE BLOOD COUNT 11.1 x10^3/uL (4.8-10.8)
--- NOTE | 2018-12-11 08:23 | PROVIDER PROGRESS NOTE ---
Subjective - Prog Note Date Prog Note Date: 12/11/18 Prog Note Time: 08:21 - Subjective Pt reports feeling: Improved (Pain 06/09. taking motrin. breast feeding) Objective - Vital Signs/Intake & Output Reviewed Vital Signs: Yes Vital Signs: Vital Signs x48h Temp Pulse Resp BP Pulse Ox 12/11/18 03:30 36.9 C 82 17 114/60 99 Intake & Output: Intake & Output 12/08/18 12/09/18 12/10/18 12/11/18 23:59 23:59 23:59 23:59 Intake Total 100 5087.500 Output Total 1000 300 Balance 100 4087.500 -300 - Objective General Appearance: positive: No acute distress, Alert (sleepy) Respiratory: positive: Chest non-tender, No respiratory distress, Breath sounds nml Cardiovascular: positive: Regular rate & rhythm, No murmur, No gallop Abdomen: positive: Non-tender, No organomegaly, Nml bowel sounds, Mass Back: negative: CVA tenderness (R), CVA tenderness (L) Extremities: negative: Calf tenderness, Ajit's sign/cords - Lab Results Fish Bones: 12/11/18 05:32 Other Labs: Lab Results x24hrs 12/11/18 Range/Units 05:32 WBC 11.1 H (4.8-10.8) x10^3/uL RBC 3.44 L (4.20-5.40) 10^6/uL Hgb 10.4 L (12.0-16.0) g/dL Hct 30.9 L (37.0-47.0) % MCV 89.8 (81.0-99.0) fL MCH 30.2 (27.0-31.0) pg MCHC 33.7 (32.0-36.0) g/dL RDW 14.0 (12.0-15.0) % Plt Count 194 (130-450) 10^3/uL MPV 10.4 (7.9-10.8) fL Neut # (Auto) 8.3 H (1.5-6.6) 10^3/uL Lymph # (Auto) 1.5 (1.5-3.5) 10^3/uL Wilkes # (Auto) 1.1 H (0.0-1.0) 10^3/uL Eos # (Auto) 0.1 (0.0-0.7) 10^3/uL Baso # (Auto) 0.0 (0.0-0.1) 10^3/uL Absolute Nucleated RBC 0.00 x10^3/uL Nucleated RBC % 0.0 /100WBC Assessment/Plan - Problem List (1) Gestational [-induced] hypertension without significant proteinuria, complicating childbirth Impression: blood pressure resolving (2) (spontaneous vaginal delivery) Impression: PPD#1 progressing.
[2018-12-11] MEDS: DOCUSATE SODIUM 100 MG CAPSULE PO SCH ×2 (10:02→21:00)
[2018-12-12] MEDS ORDERED: LACTATED RINGERS 0 ML IV ONE (02:07)
[2018-12-12] MEDS ORDERED: OXYTOCIN IV ONE (02:07)
[2018-12-12] MEDS ORDERED: DEXTROSE IV ONE (02:07)
[2018-12-12] MEDS: ACETAMINOPHEN 500 MG TABLET PO SCH (05:05)
--- NOTE | 2018-12-12 06:22 | PROVIDER PROGRESS NOTE ---
Subjective - Prog Note Date Prog Note Date: 12/12/18 Prog Note Time: 06:19 - Subjective Pt reports feeling: Improved Subjective: Olga is up and ambulating, tolerating p.o., voiding, and pain is well managed with oral pain medications. Breast-feeding is going well. She notes her anxiety levels are markedly reduced. Blood pressures have been within normal range for 24 hours. She has no headaches, vision change, right upper quadrant pain. She feels ready for discharge. Objective - Vital Signs/Intake & Output Vital Signs: Vital Signs x48h Temp Pulse Resp BP Pulse Ox 12/12/18 02:00 98.0 F 75 16 133/75 H 99 Intake & Output: Intake & Output 12/09/18 12/10/18 12/11/18 12/12/18 23:59 23:59 23:59 23:59 Intake Total 100 5087.500 750 Output Total 1000 300 Balance 100 4087.500 450 - Objective General Appearance: positive: No acute distress Neck: positive: Nml inspection Respiratory: positive: No respiratory distress, Breath sounds nml Cardiovascular: positive: Regular rate & rhythm Abdomen: positive: Non-tender, Other (Fundus firm below the umbilicus) Extremities: positive: Non-tender, Other (Mild bilateral lower extremity edema. No tenderness) Neurologic/Psychiatric: positive: Oriented x3 - Lab Results Fish Bones: 12/11/18 05:32 Assessment/Plan - Problem List (2) (spontaneous vaginal delivery) Impression: day 2 status post induction of labor for gestational hypertension with . Patient meeting goals for discharge. -Up and ambulating -Tolerating p.o. -Voiding without difficulty -Pain managed with oral medications. Blood pressures have normalized. No PIH symptoms. Warning signs reviewed. Routine discharge instructions given. Discharge to home. If baby is not released, okay to discharge to [facility]. Follow-up within 1 week for blood pressure check. Patient instructed to conduct blood pressure checks at home.
[2018-12-12 09:19] VITALS: BP 149/100
[2018-12-12] MEDS: IBUPROFEN 800 MG TABLET PO SCH (09:57)
--- NOTE | 2018-12-12 12:04 | Labor Flowsheet ---
Labor Flowsheet Datetime Report Generated by CPN: 12/12/2018 12:03 Datetime: 12/12/2018 09:32 VITAL SIGNS NBP Sys/Carolyn/Mean (mmHg): 151 : 91 : 105 Pulse: 82 LaborFlag: Labor Datetime: 12/10/2018 19:45 SpO2 (%): 98 Datetime: 12/10/2018 19:00 UTERINE ACTIVITY Monitor Mode: Internal Frequency (min): 2-3 Duration (sec): 60-80 Pattern: Normal: <= 5 Contractions in 10 Minutes Resting Tone IUP (mmHg): 30 Intensity IUP (mmHg): 100 ASSESSMENT A Monitor Mode: External US FHR Baseline Rate : indeterminate - FHTs from 70s-170s Category: Category II Datetime: 12/10/2018 18:55 FHR Baseline Changes: No Baseline Change Variability: Moderate 6-25 bpm Accelerations: None Decelerations: Variable Datetime: 12/10/2018 18:48 COMMUNICATION Communication: Provider at Bedside Provider Notified (Name): Giem Communication Comments: Set up for delivery Datetime: 12/10/2018 18:37 VAGINAL EXAM Dilatation (cm): 10.0 Station: 2 Exam by: EM Datetime: 12/10/2018 18:36 Respirations: 20 Temperature (C): 37.0 Datetime: 12/10/2018 18:34 Anesthesia Level Check: T11 Datetime: 12/10/2018 17:25 Antiemetics/Antacids: Zofran (mg) @ 4 Datetime: 12/10/2018 17:18 Anesthesia Comments: Gamaliel @BS Datetime: 12/10/2018 17:15 Resting Tone (Palpate): Relaxed Datetime: 12/10/2018 17:09 Effacement (%): 80 Datetime: 12/10/2018 17:00 Contraction Comments: Unable to palpate ctx Datetime: 12/10/2018 16:47 Patient Position/Activity: Right Lateral Datetime: 12/10/2018 16:45 Monitor Interventions for UA: [place] Adjusted Datetime: 12/10/2018 16:30 Monitor Interventions for FHR: Ultrasound Adjusted Datetime: 12/10/2018 16:00 Stage of : Labor Datetime: 12/10/2018 15:30 Quality: Moderate Datetime: 12/10/2018 15:26 Epidural Procedure Other: Redose Datetime: 12/10/2018 14:44 MEDICATIONS Pitocin (milliunits): Increased to @ 10 Datetime: 12/10/2018 14:15 Patient Care Comments: pt sleeping Datetime: 12/10/2018 12:00 I/O Interventions: Noriega Cath Inserted Datetime: 12/10/2018 11:54 Membrane Status: Ruptured Membranes Rupture Method: Artificial Amniotic Fluid Color: Clear Amniotic Fluid Amount: Small Vaginal Exam Comments: no change Datetime: 12/10/2018 10:16 Epidural Procedure: Test Dose Datetime: 12/10/2018 10:06 PROCEDURE TIME OUT Procedure Verify: Correct Patient Identity; Correct Side and Site are Marked; Accurate Procedure Co nsent Form; Agreement on Procedure to be Done; Correct Patient Position; Relevant Images and Results are Properly Labeled and Displayed; Addressed Need to Administer Antibiotics or Fluids for Irrigation ; Safety Precautions Based on Patient History or Medication Use ANESTHESIA Epidural Positioning: Sitting Datetime: 12/10/2018 07:55 Temperature Route: Oral Datetime: 12/10/2018 06:24 TEACHING Instructional Method: Verbal Plan of Care: Plan of Care Discussed Unit Routine: Unit Personnel Datetime: 12/10/2018 06:18 PAIN Pain Scale: 5 Pain Presence: Intermittent Pain Type: Contraction Pain Location: Abdomen; Back Pain Relief Measures: Comfort Measures Pain Coping: Talking Through Contractions; Breathing Through Contractions; Declines Medication or E pidural Datetime: 12/10/2018 06:14 Pitocin Checklist: At Least 1 Acceleration of 15 bpm x 15 Seconds in 30 Minutes or Adequate Variabi lity; No More than 1 Late Deceleration Occurred in Past 30 Minutes; No More than 2 Variable Decelerat ions > 60 Seconds in Duration and decreasing >60 bpm in 30 minutes; No More than 5 Uterine Contractio ns in 10 Minutes for any 20 Minute Interval Datetime: 12/10/2018 05:24 Cervix, Consistency: Moderate Cervix, Position: Posterior Datetime: 12/10/2018 04:18 Pain Assessment Comments: pt sleeping Datetime: 12/10/2018 02:33 Pain Management: IV Narcotics; PRN Medications; Pain Scale/Goals; Comfort Measures Datetime: 12/10/2018 02:12 Analgesics/Sedatives: Fentanyl (mcg) @ 50 Datetime: 12/10/2018 02:00 MATERNAL ASSESSMENT Level of Consciousness: Fully Conscious Breath Sounds, Left: Clear and Equal Breath Sounds, Right: Clear and Equal Nausea/Vomiting: Present Datetime: 12/09/2018 23:31 Antibiotics: Ampicillin IV 1 Gm Datetime: 12/09/2018 20:40 Medication Comments: NITROUS STOPPED Datetime: 12/09/2018 20:00 DTR's/Clonus: DTRs 1+ Headache: Denies RUQ Epigastric Pain: Denies Datetime: 12/09/2018 19:34 PATIENT CARE IV/Blood Work: IV Infusing per Order Datetime: 12/09/2018 19:30 Labor/Induction: Cervical Ripening Medications: Antibiotics Datetime: 12/09/2018 19:00 Oxygen Method: Room Air Datetime: 12/09/2018 18:55 Cervical Ripening Agents: Noriega Balloon Datetime: 12/09/2018 17:59 Comfort Measures: Breathing/Relaxation; Family Support Datetime: 12/09/2018 16:00 Comments: Cyclic changes from mod to min robbie Datetime: 12/09/2018 15:01 Related: Nutrition; Hydration; Activity and Rest
--- NOTE | 2018-12-22 13:22 | DISCHARGE SUMMARY ---
Discharge Summary Admit Date: 12/09/18 Discharge Date: 12/12/18 Discharging Provider: Sarah Garrison MD Condition at Discharge: Good Discharge Disposition: 01 Home, Self Care - DIAGNOSES Admission Diagnoses: IUP at 39w6d Gestational hypertension Discharge Diagnoses with Status of Each Condition: Same and delivery of term gestation. - HPI History of Present Illness: 18yo @ 39.6wks gestation by LMP c/w 11.3wk U/S with BRITTANY 12/10/18 presented to [facility] for induction of labor for gestational hypertension. On 12/06/18, Olga was directed from her routine office visit to Labor and Delivery secondary to elevated blood pressures. She underwent cervical ripening with miso x6 with minimal change in Bishops score from initial exam of 1/25/-3, posterior, vertex, membranes intact. Her blood pressures were in normal range, she was withiout symptoms, and PIH labs were normal. She was discharged to home for IOL on 12/09/18. She had been a patient of [facility] since 36wks gestation when she transferred her care from [facility]. Her has been healthy and uneventful with the exception of serum integrated which was positive for down syndrome. Wilber and ultrasounds to follow were WNL. She also reports that she was being followed for concerns of growth and that her last growth ultrasound was WNL - HOSPITAL COURSE Hospital Course: 18 yo at 39w6d EGA admitted for induction of labor for gestational hypertension. Initial SVE was 1/50/-3, posterior, vertex, intact membranes. She received misoprostol x2 doses. Noriega balloon was placed and fell out at 3 cm. Ampicillin given for GBS prophylaxis. Epidural for pain management. Induction continued with pitocin administration. She underwent artificial rupture of membranes at 1154 on 12/10/18. She rested as pitocin was increased. She reached complete at 1837. She pushed well for 27 min second stage, delivering a vigrous female infant at 19:04. bradycardia to the 60s noted at time of delivery and a midline episiotomy was performed to expedite delivery. Baby was placed on mothers abdomen and stimulated. Apgars of 9/9. Weight 3180 g. Placenta followed delivered at 1910. It was inspected and found to be intact. Second degree laceration repaired with 3-0 Vicryl. Total EBL 300 ml. course was uncomplicated. Blood pressures remained within normal range during period. Discharged to home on PPD#2. - ALLERGIES Allergies/Adverse Reactions: Allergies Allergy/AdvReac Type Severity Reaction Status Date / Time No Known Drug Allergies Allergy Verified 12/06/18 13:15 - LABS Result Diagrams: 12/11/18 05:32 - FOLLOW UP Follow Up: 1 week for BP check - TIME SPENT Time Spent in Discharge (Minutes): 30
== END 2018-12-12 11:50 | disposition home or self-care (01) | DRG 807 ==
LOC: WFO 07:41 → FBP 08:03 → WFO 08:12 → FBP 08:13 → OBSVTOIN 12-10 08:10
PROVIDERS: ADMIT Obstetrics & Gynecology; ATTEND Obstetrics & Gynecology
PROC: 0U7C7ZZ Dilation of Cervix, Via Natural or Artificial Opening (ICD-10-PCS; 2018-12-09)
PROC: 10E0XZZ Delivery of Products of Conception, External Approach (ICD-10-PCS; principal; 2018-12-10)
PROC: 0W8NXZZ Division of Female Perineum, External Approach (ICD-10-PCS; 2018-12-10)
PROC: 10907ZC Drainage of Amniotic Fluid, Therapeutic from Products of Conception, Via Natural or Artificial Opening (ICD-10-PCS; 2018-12-10)
PROC: 10H07YZ Insertion of Other Device into Products of Conception, Via Natural or Artificial Opening (ICD-10-PCS; 2018-12-10)
DX: O13.4 Gestational [pregnancy-induced] hypertension without significant proteinuria, complicating childbirth (principal); Z37.0 Single live birth; Z3A.39 39 weeks gestation of pregnancy; O76 Abnormality in fetal heart rate and rhythm complicating labor and delivery; Z87.891 Personal history of nicotine dependence; O99.824 Streptococcus B carrier state complicating childbirth; O69.81X0 Labor and delivery complicated by cord around neck, without compression, not applicable or unspecified; O99.344 Other mental disorders complicating childbirth; F41.1 Generalized anxiety disorder
CPT/HCPCS: 36415; 82570; 83615; 84156; 84450; 84550; 85025; A9270; G0378; G0379; J7120; 59200

== ENCOUNTER 2019-04-24 15:47 | Emergency (ER) | payer OTHER ==
[2019-04-24 16:08] VITALS: BP 134/77
--- NOTE | 2019-04-24 16:08 | ED Physician Documentation ---
PD HPI UPPER EXT INJURY - Stated complaint Stated Complaint: RT ELBOW INJURY/FALL - History obtained from History obtained from: Patient - History of Present Illness Location: Right, Elbow, Other (right foot) Type of injury: Fall (she tripped and fell, catching herself with right outstretched hand. FOot twisted as well. No pain at wrist but hurts in elbow at posterior area. Pain with extension of elbow and with supination/pronation.) Where injury occurred: Home Timing - onset: Today Timing - details: Abrupt onset Improved by: Rest Worsened by: Moving, Palpating Associated symptoms: Swelling (around the elbow). No: Weakness, Numbness Similar symptoms before: Has not had sx before Recently seen: Not recently seen Review of Systems Skin: denies: Abrasion (s), Laceration (s) Musculoskeletal: denies: Neck pain, Back pain Neurologic: denies: Focal weakness, Numbness, Headache, Head injury PD PAST MEDICAL HISTORY - Past Medical History Cardiovascular: None Respiratory: None Neuro: None Endocrine/Autoimmune: None GI: GERD (during ) : None Musculoskeletal: None - Allergies Allergies/Adverse Reactions: Allergies Allergy/AdvReac Type Severity Reaction Status Date / Time No Known Drug Allergies Allergy Verified 04/24/19 16:04 - Social History Smoking Status: Never smoker PD ED PE NORMAL - Vitals Vital signs reviewed: Yes - General General: Alert and oriented X 3, No acute distress, Well developed/nourished - Derm Derm: Normal color, Warm and dry - Extremities Extremities: Other (right foot with some tenderness dorsolaterally. Not tender at ankle. Right elbow with tenderness at antecubital area and also at posterior elbow. Not tender at epicondyles. No noted effusion. Full extension but hurts. ) - Neuro Neuro: No motor deficit, No sensory deficit Results - Vitals Vitals: Vital Signs - 24 hr 04/24/19 16:04 Temperature 36.6 C Heart Rate 80 Respiratory 15 Rate Blood Pressure 134/77 H O2 Saturation 99 Oxygen O2 Source Room air - Rads (name of study) right foot Radiology: Prelim report reviewed (no fractures), See rad report right elbow Radiology: Prelim report reviewed, EMP read contemporaneously (fracture of radial neck without angulation nor displacement. ), See rad report PD MEDICAL DECISION MAKING - ED course Complexity details: considered differential, d/w patient Departure - Departure Disposition: Home, Self Care Clinical Impression: Foot sprain Qualifiers: Encounter type: initial encounter Laterality: right Qualified Code(s): S93.601A - Unspecified sprain of right foot, initial encounter Accidental fall Qualifiers: Encounter type: initial encounter Qualified Code(s): W19.XXXA - Unspecified fall, initial encounter Radial neck fracture Qualifiers: Encounter type: initial encounter Fracture type: closed Fracture alignment: nondisplaced Laterality: right Qualified Code(s): S52.134A - Nondisplaced fracture of neck of right radius, initial encounter for closed fracture Elbow sprain Qualifiers: Encounter type: initial encounter Laterality: right Qualified Code(s): S53.401A - Unspecified sprain of right elbow, initial encounter Condition: Stable Record reviewed to determine appropriate education?: Yes Instructions: ED Fx Radial Head Follow-Up: Charity Braun ARNP [Primary Care Provider] - Comments: Use the sling for the arm to protect motion at the elbow. Slight motion is okay. No heavy lifting push pull or use of the elbow so that the fractured part does not displace. Follow-up with orthopedics through your primary care in about a week, call for an appointment. It does look like a fracture of the head of the radius. You will need to have limited use of the arm and it in a sling for about 4 weeks. Follow-up however with orthopedics in about a week to recheck it. Tylenol or ibuprofen as needed for pains. Discharge Date/Time: 04/24/19 17:50
[2019-04-24] MEDS ORDERED: ACETAMINOPHEN 325 MG TABLET PO STA (17:13)
--- NOTE | 2019-04-24 17:13 | XRAY Report ---
Reason: fall Procedure Date: 04/24/2019 Accession Number: [id number] / [id number] Procedure: XR - Foot 3 View RT CPT Code: Final Report FULL RESULT: EXAM: RIGHT FOOT RADIOGRAPHY EXAM DATE: 04/24/2019 05:04 PM. CLINICAL HISTORY: Tripped on stairs. Fall. Pain. COMPARISON: None. TECHNIQUE: 3 views. FINDINGS: Bones: Normal. No fractures or bone lesions. Joints: Normal. No subluxations. Soft Tissues: Unremarkable. IMPRESSION: Normal foot radiography. [facility]
--- NOTE | 2019-04-24 17:16 | XRAY Report ---
Reason: fall Procedure Date: 04/24/2019 Accession Number: [id number] / [id number] Procedure: XR - Elbow 3 View RT CPT Code: Final Report FULL RESULT: EXAM: RIGHT ELBOW RADIOGRAPHY EXAM DATE: 04/24/2019 05:01 PM. CLINICAL HISTORY: Fall. COMPARISON: None. TECHNIQUE: 3 views. FINDINGS: Bones: Subtle cortical irregularity of the radial neck is seen which could reflect a subtle nondisplaced fracture. No other fracture lines. Joints: Small elbow joint effusion noted. No subluxation. Soft Tissues: Mild anterior soft tissue swelling at the elbow. IMPRESSION: 1. Probable nondisplaced radial neck fracture with surrounding soft tissue swelling. 2. Small elbow joint effusion. No subluxations. RADIA
== END 2019-04-24 17:50 | disposition home or self-care (01) ==
LOC: ED 15:47
DX: S52.134A Nondisplaced fracture of neck of right radius, initial encounter for closed fracture (principal); S53.401A Unspecified sprain of right elbow, initial encounter; S93.601A Unspecified sprain of right foot, initial encounter; W01.0XXA Fall on same level from slipping, tripping and stumbling without subsequent striking against object, initial encounter; Y92.009 Unspecified place in unspecified non-institutional (private) residence as the place of occurrence of the external cause
CPT/HCPCS: 73080; 73630; 99283; A9270

== ENCOUNTER 2020-11-10 15:40 | Emergency (ER) | payer OTHER ==
[2020-11-10 16:06] LABS: BASOPHILS % (AUTO) 0.5 %; EOSINOPHILS # (AUTO) 0.5 10^3/uL (0.0-0.7); HCT - HEMATOCRIT 34.6 % (37.0-47.0); HGB - HEMOGLOBIN 11.9 g/dL (12.0-16.0); LYMPHOCYTES # (AUTO) 2.2 10^3/uL (1.5-3.5); LYMPHOCYTES % (AUTO) 28.5 %; MEAN CORPUSCULAR HEMOGLOBIN 29.4 pg (27.0-31.0); MEAN CORPUSCULAR HGB CONC 34.4 g/dL (32.0-36.0); MEAN CORPUSCULAR VOLUME 85.4 fL (81.0-99.0); MEAN PLATELET VOLUME 9.3 fL (7.9-10.8); MONOCYTES # (AUTO) 0.9 10^3/uL (0.0-1.0); MONOCYTES % (AUTO) 11.1 %; NEUTROPHILS # (AUTO) 4.1 10^3/uL (1.5-6.6); NEUTROPHILS % (AUTO) 53.6 %; PLT - PLATELET COUNT 278 10^3/uL (130-450); RED BLOOD COUNT 4.05 10^6/uL (4.20-5.40); RED CELL DISTRIBUTION WIDTH 12.8 % (12.0-15.0); WHITE BLOOD COUNT 7.7 x10^3/uL (4.8-10.8)
[2020-11-10 16:26] LABS: ALBUMIN 4.1 g/dL (3.2-5.5); ALBUMIN/GLOBULIN RATIO 1.1 (1.0-2.2); BILIRUBIN,TOTAL 0.6 mg/dL (0.2-1.0); CALCIUM 9.1 mg/dL (8.5-10.3); CREATININE 0.5 mg/dL (0.4-1.0); POTASSIUM 3.4 mmol/L (3.5-5.0); TOTAL PROTEIN 7.8 g/dL (6.7-8.2)
--- NOTE | 2020-11-10 16:51 | ED Physician Documentation ---
PD HPI FEMALE - Stated complaint Stated Complaint: SPOTTING - Chief complaint Chief Complaint: Abd Pain - History obtained from History obtained from: Patient - History of Present Illness Timing - onset: Today Timing - duration: Days (1) Timing - details: Abrupt onset Pain level max: 1 Pain level max: 1 Associated symptoms: Pelvic pain. No: Fever, Abdominal pain, Vaginal pain, Vaginal discharge, Dysuria, Urinary frequency Contributing factors: Recently seen: Not recently seen - Additional information Additional information: Patient is a 20-year-old female, 2 para 1 who believes she is about 9 to 10 weeks . She states that that today she started having spotting. Has not had any care yet. Is on vitamins. Rates her pelvic cramping as 1 out of 10. Nothing makes it better or worse. No urinary symptoms. No vaginal discharge Review of Systems Constitutional: denies: Fever, Chills Respiratory: denies: Cough GI: denies: Vomiting, Diarrhea Skin: denies: Rash Musculoskeletal: denies: Neck pain, Back pain Neurologic: denies: Headache PD PAST MEDICAL HISTORY - Past Medical History Cardiovascular: None Respiratory: None Neuro: None Endocrine/Autoimmune: None GI: GERD (during ) : None Musculoskeletal: None - Allergies Allergies/Adverse Reactions: Allergies Allergy/AdvReac Type Severity Reaction Status Date / Time No Known Drug Allergies Allergy Verified 11/10/20 15:49 - Social History Does the pt smoke?: No Smoking Status: Never smoker PD ED PE NORMAL - Vitals Vital signs reviewed: Yes - General General: Alert and oriented X 3, No acute distress - HEENT HEENT: Moist mucous membranes - Neck Neck: Supple, no meningeal sign - Cardiac Cardiac: RRR - Respiratory Respiratory: No respiratory distress, Clear bilaterally - Abdomen Abdomen: Soft, Non tender, Non distended - Back Back: No CVA TTP, No spinal TTP - Derm Derm: Warm and dry - Extremities Extremities: No edema - Neuro Neuro: Alert and oriented X 3 Results - Vitals Vitals: Vital Signs - 24 hr 11/10/20 11/10/20 15:44 16:58 Temperature 36.9 C Heart Rate 105 H 89 Respiratory 14 21 Rate Blood Pressure 138/80 H 134/82 H O2 Saturation 99 99 Oxygen O2 Source Room air - Labs Labs: Laboratory Tests 11/10/20 11/10/20 11/10/20 16:03 16:03 16:03 WBC 7.7 RBC 4.05 L Hgb 11.9 L Hct 34.6 L MCV 85.4 MCH 29.4 MCHC 34.4 RDW 12.8 Plt Count 278 MPV 9.3 Neut # (Auto) 4.1 Lymph # (Auto) 2.2 [place] # (Auto) 0.9 Eos # (Auto) 0.5 Baso # (Auto) 0.0 Absolute Nucleated RBC 0.00 Nucleated RBC % 0.0 Sodium 134 L Potassium 3.4 L Chloride 101 Carbon Dioxide 24 Anion Gap 9.0 BUN 11 Creatinine 0.5 Estimated GFR (MDRD) 154 Glucose 99 Calcium 9.1 Total Bilirubin 0.6 AST 31 ALT 30 Alkaline Phosphatase 73 Total Protein 7.8 Albumin 4.1 Globulin 3.7 Albumin/Globulin Ratio 1.1 Lipase 48 HCG, Quant 00667.00 Urine Color Urine Clarity Urine pH Ur Specific [place] Urine Protein Urine Glucose (UA) Urine Ketones Urine Occult Blood Urine Nitrite Urine Bilirubin Urine Urobilinogen Ur Leukocyte Esterase Urine RBC Urine WBC Ur Squamous Epith Cells Urine Bacteria Urine Mucus Ur Microscopic Review Urine Culture Comments 11/10/20 17:05 WBC RBC Hgb Hct MCV MCH MCHC RDW Plt Count MPV Neut # (Auto) Lymph # (Auto) [place] # (Auto) Eos # (Auto) Baso # (Auto) Absolute Nucleated RBC Nucleated RBC % Sodium Potassium Chloride Carbon Dioxide Anion Gap BUN Creatinine Estimated GFR (MDRD) Glucose Calcium Total Bilirubin AST ALT Alkaline Phosphatase Total Protein Albumin Globulin Albumin/Globulin Ratio Lipase HCG, Quant Urine Color YELLOW Urine Clarity CLEAR Urine pH 6.5 Ur Specific [place] 1.010 Urine Protein NEGATIVE Urine Glucose (UA) NEGATIVE Urine Ketones NEGATIVE Urine Occult Blood SMALL H Urine Nitrite NEGATIVE Urine Bilirubin NEGATIVE Urine Urobilinogen 0.2 (NORMAL) Ur Leukocyte Esterase NEGATIVE Urine RBC 0-5 Urine WBC 0-3 Ur Squamous Epith Cells RARE Squamous Urine Bacteria None Seen Urine Mucus Few Strands Ur Microscopic Review INDICATED Urine Culture Comments NOT INDICATED - Rads (name of study) OB ultrasound Radiology: Final report received, EMP read contemporaneously, See rad report (Single living intrauterine gestation with average ultrasound age of 8 weeks 1 day. ) PD MEDICAL DECISION MAKING - ED course Complexity details: reviewed results, re-evaluated patient, considered differential, d/w patient ED course: 20-year-old female with vaginal bleeding affecting early . No evidence of ectopic. Single living IUP, EGA of 8 weeks 1 day. Small subchorionic hemorrhage. We will have her follow-up with OB for further care. Patient counseled regarding signs and symptoms for which I believe and urgent re- evaluation would be necessary. Patient with good understanding of and agreement to plan and is comfortable going home at this time This document was made in part using voice recognition software. While efforts are made to proofread this document, sound alike and grammatical errors may occur. Departure - Departure Disposition: 01 Home, Self Care Clinical Impression: Vaginal bleeding affecting early Condition: Good Instructions: ED Miscarriage Poss Follow-Up: [facility] [Provider Group] - Within 1 week Comments: Your ultrasound appears to show an intrauterine , estimated gestational age of 8 weeks and 1 day. Your estimated delivery date is 06-21-2021. You do have a small subchorionic hemorrhage, this is common early in . This should resolve on its own. Please follow-up with your doctor for further care. Return if you worsen Discharge Date/Time: 11/10/20 18:00
[2020-11-10 16:58] VITALS: BP 134/82
[2020-11-10 17:08] LABS: BILIRUBIN,URINE NEGATIVE (NEGATIVE); CLARITY,URINE CLEAR (CLEAR); GLUCOSE, URINE (UA) NEGATIVE (NEGATIVE); KETONES,URINE (UA) NEGATIVE (NEGATIVE); LEUKOCYTE ESTERASE, URINE NEGATIVE (NEGATIVE); NITRITE,URINE NEGATIVE (NEGATIVE); OCCULT BLOOD,URINE SMALL (NEGATIVE); PH,URINE 6.5 PH (5.0-7.5); PROTEIN,URINE NEGATIVE (NEGATIVE); UROBILINOGEN,URINE 0.2 (NORMAL) E.U./dL (NORMAL)
[2020-11-10 17:12] LABS: BACTERIA,URINE None Seen /HPF (None Seen); MUCUS,URINE Few Strands; RBC,URINE 0-5 /HPF (0-5); SQUAMOUS EPITHELIAL CELL,UR RARE Squamous (<= Few); WBC,URINE 0-3 /HPF (0-5)
--- NOTE | 2020-11-10 18:20 | Ultrasound Report ---
PROCEDURE: OB First Trimester w/TV INDICATIONS: 10 weeks preg, vag bleed OUTSIDE/PRIOR DATING DATA: Last menstrual period (LMP): 09/03/2020. LMP-based estimated date of delivery (BRITTANY): 06/10/2021. First dating scan (date and location): 11/10/2020. Estimated date of delivery (BRITTANY) from first dating scan: 06/21/2021. The below data below was generated using the ultrasound generated BRITTANY of 06/21/2021 TECHNIQUE: Real-time scanning was performed of the fetus and maternal pelvic organs, with image documentation. Endovaginal scanning was also performed to better visualize the fetus and maternal ovaries. COMPARISON: None. FINDINGS: Embryo: Mean gestational sac diameter is 2.8 cm. The embryo within the gestational sac has a crown-r ump length of 1.7 cm. Average ultrasound age is 8 weeks 1 day. Heart rate: 164 Measurement variability in dating: +/- 4 weeks by LMP, +/- 7 days by mean sac diameter (use before 6 weeks gestation if crown-rump length not able to be measured), +/- 5 days by crown-rump length (6-12 weeks gestation). Maternal organs: Ovaries unremarkable other than a left ovarian corpus luteum cyst. IMPRESSION: Single living intrauterine gestation with average ultrasound age of 8 weeks 1 day. Reviewed by: Jak Barbosa MD on 11/10/2020 6:19 PM PDT Approved by: Jka Barbosa MD on 11/10/2020 6:19 PM PDT Station ID: [id number]
== END 2020-11-10 18:00 | disposition home or self-care (01) ==
LOC: ED 15:40
DX: O20.9 Hemorrhage in early pregnancy, unspecified (principal); Z3A.08 8 weeks gestation of pregnancy
CPT/HCPCS: 36415; 80053; 81001; 81003; 83690; 84702; 85025; 87086; 99282; 99284

== ENCOUNTER 2020-11-30 15:36 | Outpatient (CLI) | payer OTHER ==
[2020-11-30 20:53] LABS: BASOPHILS % (AUTO) 0.3 %; EOSINOPHILS # (AUTO) 0.3 10^3/uL (0.0-0.7); EOSINOPHILS % (AUTO) 3.9 %; HCT - HEMATOCRIT 35.3 % (37.0-47.0); LYMPHOCYTES # (AUTO) 1.8 10^3/uL (1.5-3.5); MEAN CORPUSCULAR HEMOGLOBIN 29.3 pg (27.0-31.0); MEAN CORPUSCULAR VOLUME 86.1 fL (81.0-99.0); MEAN PLATELET VOLUME 10.1 fL (7.9-10.8); MONOCYTES # (AUTO) 0.7 10^3/uL (0.0-1.0); MONOCYTES % (AUTO) 8.9 %; NEUTROPHILS # (AUTO) 4.5 10^3/uL (1.5-6.6); NEUTROPHILS % (AUTO) 61.6 %; PLT - PLATELET COUNT 297 10^3/uL (130-450); RED CELL DISTRIBUTION WIDTH 13.2 % (12.0-15.0); WHITE BLOOD COUNT 7.3 x10^3/uL (4.8-10.8)
[2020-12-02 08:57] LABS: HEPATITIS B SURFACE ANTIGEN NON-REACTIVE (NON-REACTIVE); HEPATITIS C ANTIBODY NON-REACTIVE (NON-REACTIVE)
[2020-12-02 13:46] LABS: HIV AG/AB 4TH GEN NON-REACTIVE (NON-REACTIVE)
== END 2020-11-30 15:37 | disposition home or self-care (01) ==
LOC: LAB.N 15:36
PROVIDERS: ATTEND Advanced Practice Midwife
DX: Z36.9 Encounter for antenatal screening, unspecified (principal)
CPT/HCPCS: 36415; 85025; 86592; 86762; 86787; 86803; 86850; 86900; 86901; 87340; 87389

== ENCOUNTER 2021-01-14 08:00 | Outpatient (CLI) | payer OTHER | END 2021-01-14 16:13 | disposition home or self-care (01) | LOC: LAB.N 08:00 | PROVIDERS: ATTEND Nurse Practitioner Obstetrics & Gynecology | DX: Z36.9 Encounter for antenatal screening, unspecified (principal) | CPT/HCPCS: 81511; 81599 ==

== ENCOUNTER 2021-01-17 09:43 | Emergency (ER) | payer OTHER ==
[2021-01-17 10:44] LABS: BILIRUBIN,URINE NEGATIVE (NEGATIVE); GLUCOSE, URINE (UA) NEGATIVE (NEGATIVE); KETONES,URINE (UA) NEGATIVE (NEGATIVE); LEUKOCYTE ESTERASE, URINE NEGATIVE (NEGATIVE); NITRITE,URINE NEGATIVE (NEGATIVE); OCCULT BLOOD,URINE NEGATIVE (NEGATIVE); PH,URINE 7.5 PH (5.0-7.5); PROTEIN,URINE NEGATIVE (NEGATIVE); UROBILINOGEN,URINE 2 E.U./dL (NORMAL)
[2021-01-17 10:46] LABS: CLARITY,URINE CLEAR (CLEAR)
[2021-01-17 11:17] VITALS: BP 136/74
--- NOTE | 2021-01-17 11:34 | ED Physician Documentation ---
PD HPI ABD PAIN - Stated complaint Stated Complaint: 17WKS/CONTRACTIONS - Chief complaint Chief Complaint: Abd Pain - History obtained from History obtained from: Patient - Additional information Additional information: at 17 weeks gestation had severe contractions today, lasting 30 to 60 seconds every 5 minutes. It was painful enough that she had to leave work. She denies bleeding or fluid loss. Review of Systems Ten Systems: 10 systems reviewed and negative Constitutional: reports: Reviewed and negative Eyes: reports: Reviewed and negative Ears: reports: Reviewed and negative Nose: reports: Reviewed and negative Throat: reports: Reviewed and negative PD PAST MEDICAL HISTORY - Past Medical History Cardiovascular: None Respiratory: None Neuro: None Endocrine/Autoimmune: None GI: GERD : None Musculoskeletal: None - Past Surgical History Past Surgical History: No - Allergies Allergies/Adverse Reactions: Allergies Allergy/AdvReac Type Severity Reaction Status Date / Time No Known Drug Allergies Allergy Verified 11/10/20 15:49 - Social History Does the pt smoke?: No Smoking Status: Never smoker Does the pt drink ETOH?: No Does the pt have substance abuse?: No - Immunizations Immunizations are current?: Yes PD ED PE NORMAL - Vitals Vital signs reviewed: Yes - General General: Alert and oriented X 3, No acute distress - Abdomen Abdomen: Normal bowel sounds, Soft, Non tender, Other (Bedside sono shows live IUP) - Back Back: No CVA TTP, No spinal TTP - Derm Derm: Normal color, Warm and dry - Neuro Neuro: Alert and oriented X 3, Normal speech Results - Vitals Vitals: Vital Signs - 24 hr 01/17/21 01/17/21 10:09 11:16 Temperature 36.7 C Heart Rate 83 85 Respiratory 16 Rate Blood Pressure 118/77 136/74 H O2 Saturation 99 Oxygen O2 Source Room air - Labs Labs: Laboratory Tests 01/17/21 10:30 Urine Color YELLOW Urine Clarity CLEAR Urine pH 7.5 Ur Specific [place] 1.015 Urine Protein NEGATIVE Urine Glucose (UA) NEGATIVE Urine Ketones NEGATIVE Urine Occult Blood NEGATIVE Urine Nitrite NEGATIVE Urine Bilirubin NEGATIVE Urine Urobilinogen 2 H Ur Leukocyte Esterase NEGATIVE Ur Microscopic Review NOT INDICATED Urine Culture Comments NOT INDICATED PD MEDICAL DECISION MAKING - ED course ED course: Spoke with on-call OB, Dr. Brizuela who conferred with Dr. Garrison who recommends checking an ultrasound to evaluate cervical length, if greater than 3 cm, expectant management, if less than 3 cm I will call her back. Departure - Departure Disposition: 01 Home, Self Care Clinical Impression: contractions Condition: Good Record reviewed to determine appropriate education?: Yes Instructions: ED Labor Premature Comments: Return if worsening or if you develop bleeding or fluid loss, otherwise follow- up with your artificial insemination technician this week.
--- NOTE | 2021-01-17 12:58 | Ultrasound Report ---
PROCEDURE: OB Limited INDICATIONS: Evaluate cervical length d/t contractions OUTSIDE/PRIOR DATING DATA: Last menstrual period (LMP): September 03, 2020. LMP-based estimated date of delivery (BRITTANY): June 10, 2021. First dating scan (date and location): [facility]; November 10, 2020. Estimated date of delivery (BRITTANY) from first dating scan: June 21, 2021. The below data below was generated using the ultrasound BRITTANY of June 21, 2021 TECHNIQUE: Real-time scanning was performed of the fetus, with image documentation. COMPARISON: None. FINDINGS: A single living intrauterine gestation is present. Presentation: Cephalic Placenta: Placental position is posterior, without previa. Amniotic fluid index: 11.8 cm, appropriate for gestational age. heart rate: 140 beats per minutes. Maternal cervical canal: 4.3 cm long; normal length is 2.5 cm or more. IMPRESSION: Closed cervix with length measuring 4.3 cm Reviewed by: Jv Quintanilla MD on 01/17/2021 12:56 PM PDT Approved by: Jv Quintanilla MD on 01/17/2021 12:56 PM PDT Station ID: [id number]
== END 2021-01-17 12:36 | disposition home or self-care (01) ==
LOC: ED 09:43
DX: O60.02 Preterm labor without delivery, second trimester (principal); Z3A.17 17 weeks gestation of pregnancy
CPT/HCPCS: 81001; 81003; 87086; 99282; 99284

== ENCOUNTER 2021-02-01 09:49 | Outpatient (CLI) | payer OTHER ==
--- NOTE | 2021-02-01 12:21 | Ultrasound Report ---
PROCEDURE: OB Detailed Eval INDICATIONS: SUPERVISION OF OUTSIDE/PRIOR DATING DATA: Last menstrual period (LMP): 09/03/2020. LMP-based estimated date of delivery (BRITTANY): 06/10/2021. First dating scan (date and location): 11/10/2020[facility]. Estimated date of delivery (BRITTANY) from first dating scan: 06/21/2021. The below data below was generated using the ultrasound generated BRITTANY of 06/21/2021 TECHNIQUE: Real-time scanning was performed of the fetus, with image documentation and biometric measurements. Endovaginal scanning: Not performed COMPARISON: None. FINDINGS: General: A single living intrauterine gestation is present. Presentation: Cephalic Placenta: Placental position is right posterior, without previa. Amniotic fluid index: 10.3 cm. Largest vertical pocket measured 3.3 cm. heart rate: 148 beats per minute. Maternal cervical canal: 5.0 cm long; normal length is 2.5 cm or more. biometrics: Biparietal diameter: 4.69 cm, correlating with 20 weeks and 1 day Head circumference: 17.09 cm, correlating with 19 weeks and 5 days Abdominal circumference: 15.93 cm, correlating with 21 weeks and 0 days Femur length: 3.24 cm, correlating with 20 weeks and 1 day Estimated gestational age from initial scan: 20 weeks and 0 days Composite gestational age from present scan: 20 weeks and 2 days Estimated weight and percentile: 358.5 g which [address] the fetus within the 74th percentile bas ed off gestational age. Measurement variability in biometric dating: +/- 10 days from 12-20 weeks gestation, +/- 2 weeks from 20-30 weeks gestation, +/- 3 weeks at 30 weeks gestation or later. Anatomic survey: Neuro: Ventricles are normal at less than 10 mm. Cisterna magna is normal at 3-11 mm. Cerebellum i s normal in size and morphology. Nuchal skin fold: Normal at less than 6 mm between 14 and 20 weeks gestational age. Face: Nose and lips, facial profile are normal. Spine: No evidence for spina bifida. Heart: 4-chambered heart is present, with normal ventricular outflow tracts. Diaphragm: Diaphragm is intact. Stomach: Left-sided stomach is present. Kidneys: No hydronephrosis. Normal is less than 5 mm in 2nd trimester, less than 7 mm in 3rd trimester. Cord: 3 vessel cord has orthotopic insertion. Bladder: Normal in size. Extremities: All 4 extremities are visualized. IMPRESSION: Single living intrauterine gestation with estimated sonographic gestational age of approximately 20 w eeks and 2 days. Estimated weight of 358.5 g which correlates with the 74th percentile based off gestational age . Four-quadrant RODOLFO measures 10.3 cm with largest vertical pocket measuring 3.3 cm. Unremarkable second trimester anatomic screening survey. Reviewed by: Garrett Cordova MD on 02/01/2021 12:19 PM PDT Approved by: Garrett Cordova MD on 02/01/2021 12:19 PM PDT Station ID: [id number]
== END 2021-02-01 09:50 | disposition home or self-care (01) ==
LOC: DI 09:49
PROVIDERS: ATTEND Nurse Practitioner Obstetrics & Gynecology
DX: Z34.82 Encounter for supervision of other normal pregnancy, second trimester (principal)

== ENCOUNTER 2021-02-09 07:00 | Outpatient (CLI) | payer OTHER ==
[2021-02-09 15:58] LABS: BILIRUBIN,URINE NEGATIVE (NEGATIVE); GLUCOSE, URINE (UA) NEGATIVE (NEGATIVE); KETONES,URINE (UA) 15 mg/dL (NEGATIVE); LEUKOCYTE ESTERASE, URINE NEGATIVE (NEGATIVE); NITRITE,URINE NEGATIVE (NEGATIVE); OCCULT BLOOD,URINE NEGATIVE (NEGATIVE); PROTEIN,URINE NEGATIVE (NEGATIVE); UROBILINOGEN,URINE 0.2 (NORMAL) E.U./dL (NORMAL)
[2021-02-09 16:00] LABS: CLARITY,URINE CLEAR (CLEAR)
[2021-02-09 16:16] LABS: BACTERIA,URINE Few /HPF (None Seen); RBC,URINE 0-5 /HPF (0-5); SQUAMOUS EPITHELIAL CELL,UR FEW Squamous (<= Few); WBC,URINE 0-3 /HPF (0-5)
== END 2021-02-09 23:59 | disposition home or self-care (01) ==
LOC: LAB 07:00
PROVIDERS: ATTEND Nurse Practitioner Obstetrics & Gynecology
DX: Z34.80 Encounter for supervision of other normal pregnancy, unspecified trimester (principal)
CPT/HCPCS: 81001; 87086